=== PATIENT | male | born 1965 | race Caucasian/White ===

== ENCOUNTER 2020-05-24 17:03 | Observation (INO) | payer OTHER ==
[~2020-05-24] VITALS: Ht 172.7 cm; Wt 105.0 kg
[2020-05-24 17:32] LABS: BASOPHILS ABSOLUTE AUTO 0.06 K/mm3 (0.00-0.23); BASOPHILS PERCENT AUTO 1 % (0-2); EOSINOPHILS ABSOLUTE AUTO 0.13 K/mm3 (0.00-0.68); EOSINOPHILS PERCENT AUTO 1 % (0-6); Hematocrit 49.2 % (37.0-53.0); Hemoglobin 16.3 g/dL (13.5-17.5); IMMATURE GRAN ABSOLUTE AUTO 0.03 K/mm3 (0.00-0.10); IMMATURE GRAN PERCENT AUTO 0 % (0-1); LYMPHOCYTES PERCENT AUTO 26 % (21-46); MONOCYTES ABSOLUTE AUTO 0.72 K/mm3 (0.16-1.47); MONOCYTES PERCENT AUTO 8 % (4-13); Mean Corpuscular HGB 27.6 pg (26.0-34.0); Mean Corpuscular HGB Conc 33.1 g/dL (31.5-36.5); Mean Corpuscular Volume 83 fL (80-100); Mean Platelet Volume 10.9 fL (9.1-12.4); NEUTROPHILS ABSOLUTE AUTO 5.82 K/mm3 (1.96-9.15); NEUTROPHILS PERCENT AUTO 64 % (41-73); Platelet Count 210 K/mm3 (150-400); RDW Coefficient Variation 12.5 % (11.7-14.2); RDW Standard Deviation 38.1 fL (35.1-46.3); White Blood Cell Count 9.16 K/mm3 (4.00-11.30)
[2020-05-24 17:55] LABS: Alanine Aminotransfer (ALT/SGP 73 U/L (12-78); Albumin, Blood 3.7 g/dL (3.4-5.0); Albumin/Globulin Ratio 0.9 (0.8-1.8); Alk Phos 95 U/L (50-136); Anion Gap 7 mmol/L (6-16); Aspartate Aminotrans (AST/SGOT 32 U/L (12-37); Bilirubin, Total 0.8 mg/dL (0.1-1.0); Blood Urea Nitrogen 14 mg/dL (8-24); Bun/Creatinine Ratio 16.9 (12.0-20.0); CO2, Blood 25 mmol/L (21-32); Calcium, Blood 8.9 mg/dL (8.5-10.1); Chloride, Blood 100 mmol/L (98-108); Creatinine, Blood 0.83 mg/dL (0.60-1.20); Glomerular Filtration Rate >60 (60-); Glucose, Blood 269 mg/dL (70-99); Potassium, Blood 3.7 mmol/L (3.5-5.5); Sodium, Blood 132 mmol/L (136-145); Total Protein, Blood 7.7 g/dL (6.4-8.2); Troponin I <0.015 ng/mL (0.000-0.040)
[2020-05-24] MEDS ORDERED: GLIMEPIRIDE4 MG PO (19:55)
[2020-05-24] MEDS ORDERED: METFORMIN HCL500 M3 PO (19:56)
[2020-05-24] MEDS ORDERED: Pravachol40 MG PO (19:57)
[2020-05-24] MEDS ORDERED: NORTRIPTYLINE H10 M1 PO (20:21)
--- NOTE | 2020-05-25 04:35 | NUR ---
SHIFT SUMMARY PT NEW ADMIT YESTARDAY EVENING. AAOX4. NPO. PT REPORTING ABD DISCOMFORT STARTED TUESDAY EVENING. PT REPORTING MINIMAL DISCOMFORT SINCE ARRIVAL NO FLOOR, NO PAIN MEDS. DENIES NAUSEA/EMESIS. TELEMETRY IN PLACE, NSR IN 70s. VSS. ORIENTED TO ROOM + CALL LIGHT USE. PT EDUCATED REGARDING TX, QUESTIONS ANSWERED. PT RESTING WELL THIS AM WITH CALL LIGHT IN REACH. SURGERY CONSULT CALLED + MESSAGE WITH ANSWERING SERVICE.
[2020-05-25 05:11] LABS: Anion Gap 7 mmol/L (6-16); Blood Urea Nitrogen 12 mg/dL (8-24); CO2, Blood 25 mmol/L (21-32); Calcium, Blood 8.5 mg/dL (8.5-10.1); Chloride, Blood 104 mmol/L (98-108); Creatinine, Blood 0.92 mg/dL (0.60-1.20); Glomerular Filtration Rate >60 (60-); Glucose, Blood 218 mg/dL (70-99); Potassium, Blood 3.5 mmol/L (3.5-5.5); Sodium, Blood 136 mmol/L (136-145)
--- NOTE | 2020-05-25 13:59 | NUR ---
05/25/20 1359 Chuck Funes PT ON SCHEDULED ANTIBIOTICS GALLBLADDER DECOMPRESSED
--- NOTE | 2020-05-25 17:07 | NUR ---
Shift summary Patient had lap brandie today. Steri strips CDI. Pain controlled with Perocet. NS infusing at 150cc/hr. Post op VS in progress and WNL. Family at bedside offering support. Call light within patient reach.
[2020-05-26] MEDS ORDERED: OXYC5 PO (00:22)
--- NOTE | 2020-05-26 04:57 | NUR ---
SHIFT SUMMARY PT A/O X4, IND IN ROOM. TOLERATING PO INTAKE AND REG DIET. PAIN MANAGED WITH PO PAIN MED PER ORDERS. STERI STRIPS TO ABD CDI. PT PASSING GAS AND VOIDING. PLAN IS TO DC HOME TODAY.
--- NOTE | 2020-05-26 11:57 | NUR ---
Discharge summary Patient discharged home. IV out. Discharge instructions given, explained and signed. Prescription for Oxycodone given to patient. Patient to follow up with surgery. Patient denied questions or concerns at discharge.
== END 2020-05-26 11:53 | disposition home or self-care (01) ==
LOC: ER 17:03 → SURS 17:04 → ER 21:31 → SURS 21:31
PROVIDERS: Physician Assistant; Surgery; ADMIT Internal Medicine
PROC: 0FT44ZZ Resection of Gallbladder, Percutaneous Endoscopic Approach (ICD-10-PCS; principal; 2020-05-25 12:30)
DX: K80.00 Calculus of gallbladder with acute cholecystitis without obstruction (principal); A41.9 Sepsis, unspecified organism; E87.1 Hypo-osmolality and hyponatremia; I10 Essential (primary) hypertension; J45.909 Unspecified asthma, uncomplicated; E11.9 Type 2 diabetes mellitus without complications; E78.5 Hyperlipidemia, unspecified; Z79.84 Long term (current) use of oral hypoglycemic drugs; Z79.899 Other long term (current) drug therapy; Z11.59 Encounter for screening for other viral diseases
CPT/HCPCS: 36415; 71045; 74177; 80048; 80053; 83690; 83880; 84484; 85025; 85379; 87040; 88304; 93005; 93010; 94640; 96361; 96365-59; 96366; 96375; 96376; 99285-25; A9270-GY; G0378; J0295; J1100; J1885; J2250; J2405; J2704; J2765; J3010; J7030; Q9967; U0002

== ENCOUNTER 2023-11-29 09:38 | Emergency (ER) | payer OTHER ==
[~2023-11-29] VITALS: Ht 172.7 cm; Wt 108.9 kg
[~2023-11-29 09:38] MED LIST: GLIMEPIRIDE4 MG PO; METFORMIN HCL500 M3 PO; NORTRIPTYLINE H10 M1 PO; OXYC5 PO; Pravachol40 MG PO
[2023-11-29 10:27] LABS: BASOPHILS ABSOLUTE AUTO 0.07 K/mm3 (0.00-0.23); BASOPHILS PERCENT AUTO 1 % (0-2); EOSINOPHILS ABSOLUTE AUTO 0.04 K/mm3 (0.00-0.68); EOSINOPHILS PERCENT AUTO 0 % (0-6); Hematocrit 48.6 % (37.0-53.0); Hemoglobin 16.6 g/dL (13.5-17.5); IMMATURE GRAN ABSOLUTE AUTO 0.05 K/mm3 (0.00-0.10); IMMATURE GRAN PERCENT AUTO 1 % (0-1); LYMPHOCYTES ABSOLUTE AUTO 1.18 K/mm3 (0.84-5.20); LYMPHOCYTES PERCENT AUTO 11 % (21-46); MONOCYTES ABSOLUTE AUTO 0.51 K/mm3 (0.16-1.47); MONOCYTES PERCENT AUTO 5 % (4-13); Mean Corpuscular HGB 28.9 pg (26.0-34.0); Mean Corpuscular HGB Conc 34.2 g/dL (31.5-36.5); Mean Corpuscular Volume 85 fL (80-100); Mean Platelet Volume 11.2 fL (9.1-12.4); NEUTROPHILS PERCENT AUTO 82 % (41-73); Platelet Count 178 K/mm3 (150-400); RDW Coefficient Variation 12.4 % (11.7-14.2); RDW Standard Deviation 37.9 fL (35.1-46.3); Red Blood Cell Count 5.74 M/mm3 (4.30-5.90); White Blood Cell Count 10.55 K/mm3 (4.00-11.30)
[2023-11-29] MEDS ORDERED: Ondansetron HCl 2 MG / ML 2ML Vial IV ONE (10:30)
[2023-11-29] MEDS ORDERED: Morphine Sulfate 4 MG/1 ML Injection IV ONE (10:30)
[2023-11-29 10:42] LABS: Albumin, Blood 4.1 g/dL (3.4-5.0); Albumin/Globulin Ratio 1.2 (0.8-1.8); Bilirubin, Direct 0.1 mg/dL (0.0-0.3); Bilirubin, Indirect 0.6 mg/dL (0.1-0.7); Bilirubin, Total 0.7 mg/dL (0.1-1.0); Calcium, Blood 9.6 mg/dL (8.5-10.1); Creatinine, Blood 0.87 mg/dL (0.60-1.20); Globulin, Blood 3.4 g/dL (2.2-4.0); Total Protein, Blood 7.5 g/dL (6.4-8.2)
[2023-11-29] MEDS ORDERED: Prochlorperazine Edisylate 10 mg Vial IV ONE (11:25)
[2023-11-29 11:32] LABS: Source, Urine Voided
[2023-11-29 11:38] LABS: Appearance, Urine Clear (Clear); Bilirubin, Urine Neg (Neg); Blood, Urine Neg (Neg); Glucose Qualitative, Urine 4+ (Neg); Ketones, Urine 3+ (Neg); Leukocyte Esterase, Urine Neg (Neg); Nitrite, Urine Neg (Neg); Protein, Urine Neg (Neg); Urobilinogen, Urine NORM (Normal)
[2023-11-29 12:07] LABS: Color, Urine Pale Yellow (P-Yellow)
[2023-11-29 13:00] VITALS: BP 135/73
[2023-11-29] MEDS ORDERED: Ibuprofen600 MG PO (13:17)
[2023-11-29] MEDS ORDERED: PROM25 PO (13:17)
[2023-11-29] MEDS ORDERED: ONDA4ODT MM (13:17)
== END 2023-11-29 13:24 | disposition home or self-care (01) ==
LOC: ER 09:38
PROVIDERS: Emergency Medicine; Physician Assistant
DX: R10.31 Right lower quadrant pain (principal); I10 Essential (primary) hypertension; E11.9 Type 2 diabetes mellitus without complications; J45.909 Unspecified asthma, uncomplicated; E78.5 Hyperlipidemia, unspecified
CPT/HCPCS: 74177; 80048; 80076; 81003; 83690; 85025; 96374-59; 96375; 99284-25; J0780; J2270; J2405; Q9967

== ENCOUNTER 2024-11-28 22:14 | Emergency (ER) | payer OTHER ==
[~2024-11-28] VITALS: Ht 172.7 cm; Wt 108.9 kg
[~2024-11-28 22:14] MED LIST changes: +Amiodarone HCl 50 MG / ML 3 ML Amp IV ONE; +Atropine Sulfate 0.1 MG/ML 10ML SYR IV ONE; +BENZ100A PO; +Calcium Chloride 10% 10 ML SYR IV ONE; +DOPamine 400 MG/Dextrose 250 ML Bag IV ONE; +EPINEPhrine HCl 0.1 MG/ML 10ML SYR IV ONE; +Etomidate 2MG / ML 10ML Vial IV ONE; +Heparin Sodium,Porcine 5,000 UNIT/0.5 ML SDV SC ONE; +Ibuprofen600 MG PO; +LISI20 PO; +Magnesium Sulfate 500 MG / ML 2ML Vial IV ONE; +ONDA4ODT MM; +OSEL75CA PO; +PANTOPRAZOLE SO40 M2 PO; +PROM25 PO; +Rocuronium Bromide 10 MG/ML 5ML Injection IV ONE; +STEGLATRO15 MG PO; +Sodium Bicarb 8.4% 50 mEq Syringe IV ONE; +SuccINYLCHOLINE Chloride 100 MG/5 ML 5MLSYR IV ONE
[2024-11-28 22:26] LABS: Calcium, Ionized (POC) 1.15 mmol/L (1.10-1.46); Chloride (POC) 103 mmol/L (98-108); Creatinine (POC) 1.1 mg/dL (0.8-1.3); Glucose (ISTAT POC) 277 mg/dL (70-99); Potassium (POC) 3.8 mmol/L (3.5-5.5); Sodium (POC) 138 mmol/L (135-148); Total CO2 (POC) 24 mmol/L (21-32)
[2024-11-28] MEDS ORDERED: FentaNYL Citrate 50 MCG/ML 2 ML Injection IV PRN (22:30)
[2024-11-28] MEDS ORDERED: Heparin Sodium,Porcine/0.5 NS 500 ML IV SCH (22:30)
[2024-11-28] MEDS ORDERED: Ticagrelor 90 MG TABLET PO ONE (22:30)
[2024-11-28] MEDS ORDERED: Heparin Sodium 5000 Units/ML 1ML MDV IV ONE (22:30)
[2024-11-28 22:37] LABS: BASOPHILS ABSOLUTE AUTO 0.07 K/mm3 (0.00-0.23); BASOPHILS PERCENT AUTO 1 % (0-2); EOSINOPHILS ABSOLUTE AUTO 0.12 K/mm3 (0.00-0.68); EOSINOPHILS PERCENT AUTO 1 % (0-6); Hematocrit 46.5 % (37.0-53.0); Hemoglobin 16.1 g/dL (13.5-17.5); IMMATURE GRAN ABSOLUTE AUTO 0.06 K/mm3 (0.00-0.10); IMMATURE GRAN PERCENT AUTO 1 % (0-1); LYMPHOCYTES PERCENT AUTO 24 % (21-46); MONOCYTES ABSOLUTE AUTO 0.84 K/mm3 (0.16-1.47); MONOCYTES PERCENT AUTO 8 % (4-13); Mean Corpuscular HGB 29.3 pg (26.0-34.0); Mean Corpuscular HGB Conc 34.6 g/dL (31.5-36.5); Mean Corpuscular Volume 85 fL (80-100); Mean Platelet Volume 11.1 fL (9.1-12.4); NEUTROPHILS ABSOLUTE AUTO 6.93 K/mm3 (1.96-9.15); NEUTROPHILS PERCENT AUTO 66 % (41-73); Platelet Count 245 K/mm3 (150-400); RDW Coefficient Variation 12.8 % (11.7-14.2); RDW Standard Deviation 39.3 fL (35.1-46.3); Red Blood Cell Count 5.49 M/mm3 (4.30-5.90); White Blood Cell Count 10.52 K/mm3 (4.00-11.30)
[2024-11-28] MEDS ORDERED: FentaNYL Citrate 50 MCG/ML 2 ML Injection ONE (22:48)
[2024-11-28] MEDS ORDERED: Verapamil HCL 2.5 MG/ML 2ML Injection ONE (22:48)
[2024-11-28] MEDS ORDERED: Midazolam HCl 1MG / ML 2ML Vial ONE (22:48)
[2024-11-28] MEDS ORDERED: NS 1,000 ML IV ONE ×2 (22:49→23:04)
[2024-11-28] MEDS ORDERED: Heparin Sodium 1000 Units/ML 10ML MDV ONE (22:49)
[2024-11-28] MEDS ORDERED: NS 0 ML IV ONE (22:49)
[2024-11-28] MEDS ORDERED: Nitroglycerin 2 MG/20 ML BTL ONE (22:49)
[2024-11-28 22:59] LABS: Albumin, Blood 3.9 g/dL (3.4-5.0); Albumin/Globulin Ratio 1.1 (0.8-1.8); Bilirubin, Total 0.4 mg/dL (0.1-1.0); Bun/Creatinine Ratio 21.6 (12.0-20.0); Calcium, Blood 9.5 mg/dL (8.5-10.1); Creatinine, Blood 0.97 mg/dL (0.60-1.20); Globulin, Blood 3.7 g/dL (2.2-4.0); Potassium, Blood 3.5 mmol/L (3.5-5.5); Thyroid Stimulating Hormone 2.14 uIU/mL (0.360-4.800); Total Protein, Blood 7.6 g/dL (6.4-8.2)
[2024-11-28 23:20] VITALS: BP 112/95
[2024-11-28 23:52] LABS: International Normalized Ratio 1.02
[2024-11-29 00:05] LABS: Prothrombin Time Results 10.9 Sec (9.7-11.5)
[2024-11-29] MEDS ORDERED: Ondansetron HCl 2 MG / ML 2ML Vial IV PRN (00:10)
[2024-11-29] MEDS ORDERED: FLU VACC TS2024-25(6MOS UP)/PF 45 MCG/0.5 ML SYRINGE IM ONE (00:10)
== END 2024-11-28 23:43 ==
LOC: ER 22:14 → ICUE 22:15 → ER 23:43 → ICUE 23:43
PROVIDERS: Emergency Medicine
DX: I21.19 ST elevation (STEMI) myocardial infarction involving other coronary artery of inferior wall (principal); J45.909 Unspecified asthma, uncomplicated; E11.9 Type 2 diabetes mellitus without complications; I10 Essential (primary) hypertension; E78.5 Hyperlipidemia, unspecified; J96.01 Acute respiratory failure with hypoxia; I25.2 Old myocardial infarction; Z79.899 Other long term (current) drug therapy
CPT/HCPCS: 31500; 36556; 80047; 80053; 84443; 84484; 85014; 85025; 85610; 85730; 92950; 93005; 93010; 94002; 99285-25; C1751; J0282; J0330; J0461; J1265; J1644; J2250; J3010; J3475; J7030; J7050